=== PATIENT | female | born 1965 | race African-American/Black ===

== ENCOUNTER 2017-04-06 13:41 | Emergency (ER) | payer OTHER ==
[~2017-04-06] VITALS: Ht 170.2 cm; Wt 63.5 kg
[~2017-04-06 13:41] MED LIST: BUPR-197 PO; LORA-392 PO
[2017-04-06 13:43] VITALS: BP 111/81; PULSE 95; RESP 20; TEMP 98.3; O2SAT 98
--- NOTE | 2017-04-06 14:32 | RADRPT ---
EXAM DATE/TIME: 04/06/2017 14:08 [place] COMPARISON: No previous studies available for comparison. INDICATIONS : Flu like symptoms. MEDICAL HISTORY : None. SURGICAL HISTORY : None. ENCOUNTER: Initial ACUITY: 1 week PAIN SCORE: 0/10 LOCATION: Bilateral chest FINDINGS: The heart is normal in size. The mediastinal contours are within normal limits. There is patchy infil trate at the left lung base concerning for a basilar pneumonia. The osseous structures are intact. CONCLUSION: 1. Left basilar infiltrate concerning for a pneumonia. Salty Murray MD on April 06, 2017 at 14:29 Board Certified Radiologist. This report was verified electronically.
--- NOTE | 2017-04-06 14:39 | PD ---
HPI Chief Complaint: Cold / Flu Symptoms Time Seen by Provider: 14:38 Travel History International Travel<30 days: No Contact w/Intl Traveler<30days: No Traveled to known affect area: No History of Present Illness HPI 51-year-old female came to the emergency room with history of body right pain, nausea, vomiting and coughing for past 2 week. Patient says that this started when she was at work about 2 weeks ago and started throwing up. She went to the [place] after that with a took her blood pressure and it was 80 systolic. She was given some by mouth rehydration. She was discharged home on cefuroxime which she is still taking but says that she has not felt any better. In fact her symptoms are getting worse. She's been unable to keep any food down. She feels very dehydrated. Vital signs in triage were relatively stable. Otherwise a healthy person. She did not receive her flu shot this winter. She says her whole body hurts. No travel outside the country. She is bringing out phlegm that's yellowish to greenish in color. There was a chest x-ray done to her arrival in the ER which was read as left lower lobe infiltrate. [facility] Past Medical History Narrative Medical List of her past medical, surgical, social and family history is reviewed from the nursing note. Anxiety: Yes Depression: Yes Cancer: No Cardiovascular Problems: No Diminished Hearing: No Endocrine: Yes Gastrointestinal Disorders: No Genitourinary: No Immune Disorder: No Musculoskeletal: No Neurologic: Yes Psychiatric: Yes (PREVIOUS SUICIDE ATTEMPT 1 YR AGO) Reproductive: No Respiratory: No Thyroid Disease: Yes ?: Not Ovarian Cysts: Yes (1 OVARY REMOVED) Social History Alcohol Use: No Tobacco Use: No Substance Use: No Allergies-Medications (Allergen,Severity, Reaction): Coded Allergies: sertraline (Unverified Allergy, Severe, TONGUE SWELLING, 04/06/17) Comments List of her allergies reviewed from the nursing note. Reported Meds & Prescriptions Reported Meds & Active Scripts Active Ventolin Hfa 18 GM Inh (Albuterol Sulfate) 90 Mcg/Act Aer 2 Puff INH Q4-6H PRN Phenergan Supp (Promethazine HCl) 12.5 Mg Supp 12.5 Mg RECTAL Q4H PRN Zithromax Z-Darrel (Azithromycin) 250 Mg Dspk 250 Mg PO DIRECTED 500 MG (2 tabs) day 1, then 1 tab days 2-5. Reported Cefuroxime (Cefuroxime Axetil) 500 Mg Tab 500 Mg PO BID Effexor (Venlafaxine HCl) 75 Mg Tab 75 Mg PO DAILY Narrative Medication List of her home medications reviewed from the nursing note. Review of Systems Except as stated in HPI: all other systems reviewed are Neg Respiratory: Positive: Cough Gastrointestinal: Positive: Nausea, Vomiting Musculoskeletal: Positive: Myalgias Physical Exam Narrative GENERAL: Awake, alert, moderate distress SKIN: Focused skin assessment warm/dry. HEAD: Atraumatic. Normocephalic. EYES: Pupils equal and round. No scleral icterus. No injection or drainage. ENT: No nasal bleeding or discharge. Mucous membranes pink and moist. NECK: Trachea midline. No JVD. CARDIOVASCULAR: Regular rate and rhythm. No murmur appreciated. RESPIRATORY: No accessory muscle use. Coarse crackles in the left base. GASTROINTESTINAL: Abdomen soft, non-tender, nondistended. Hepatic and splenic margins not palpable. MUSCULOSKELETAL: No obvious deformities. No clubbing. No cyanosis. No edema. NEUROLOGICAL: Awake and alert. No obvious cranial nerve deficits. Motor grossly within normal limits. Normal speech. PSYCHIATRIC: Appropriate mood and affect; insight and judgment normal. Data Data Last Documented VS Vital Signs Date Time Temp Pulse Resp B/P (MAP) Pulse Ox O2 Delivery O2 Flow Rate FiO2 04/06/17 18:21 04/06/17 15:15 99 Room Air 04/06/17 13:43 98.3 95 20 Orders Orders Chest, Pa & Lat (04/06/17 ) Sepsis Workup Initiated (04/06/17 ) Complete Blood Count With Diff (04/06/17 14:46) Comprehensive Metabolic Panel (04/06/17 14:46) Lactic Acid Sepsis Protocol (04/06/17 14:46) Blood Culture (04/06/17 14:46) Blood Glucose (04/06/17 14:46) Ecg Monitoring (04/06/17 14:46) Iv Access Insert/Monitor (04/06/17 14:46) Oximetry (04/06/17 14:46) Oxygen Administration (04/06/17 14:46) Sodium Chlor 0.9% 1000 Ml Inj (Ns 1000 M (04/06/17 15:00) Sodium Chlor 0.9% 1000 Ml Inj (Ns 1000 M (04/06/17 15:00) Influenzae A/B Antigen (04/06/17 14:47) Sodium Chlor 0.9% 1000 Ml Inj (Ns 1000 M (04/06/17 15:00) Legionella Urinary Antigen (04/06/17 14:47) Albuterol-Ipratropium Neb (Duoneb Neb) (04/06/17 15:00) Ceftriaxone Inj (Rocephin Inj) (04/06/17 16:00) Azithromycin Inj (Zithromax Inj) (04/06/17 16:00) Ketorolac Inj (Toradol Inj) (04/06/17 16:00) Creatine Kinase (Cpk) (04/06/17 15:59) Potassium Chloride (Kcl) (04/06/17 16:15) CKMB (04/06/17 15:08) CKMB% (04/06/17 15:08) Ed Discharge Order (04/06/17 17:18) Albuterol-Ipratropium Neb (Duoneb Neb) (04/06/17 17:30) Labs Laboratory Tests Test 04/06/17 15:08 White Blood Count 14.0 TH/MM3 Red Blood Count 4.18 MIL/MM3 Hemoglobin 12.6 GM/DL Hematocrit 36.7 % Mean Corpuscular Volume 87.7 FL Mean Corpuscular Hemoglobin 30.0 PG Mean Corpuscular Hemoglobin Concent 34.2 % Red Cell Distribution Width 13.3 % Platelet Count 215 TH/MM3 Mean Platelet Volume 8.7 FL Neutrophils (%) (Auto) 89.2 % Lymphocytes (%) (Auto) 7.0 % Monocytes (%) (Auto) 3.4 % Eosinophils (%) (Auto) 0.2 % Basophils (%) (Auto) 0.2 % Neutrophils # (Auto) 12.5 TH/MM3 Lymphocytes # (Auto) 1.0 TH/MM3 Monocytes # (Auto) 0.5 TH/MM3 Eosinophils # (Auto) 0.0 TH/MM3 Basophils # (Auto) 0.0 TH/MM3 CBC Comment DIFF FINAL Differential Comment Blood Urea Nitrogen 11 MG/DL Creatinine 0.94 MG/DL Random Glucose 103 MG/DL Total Protein 7.5 GM/DL Albumin 3.3 GM/DL Calcium Level 8.7 MG/DL Alkaline Phosphatase 111 U/L Aspartate Amino Transf (AST/SGOT) 38 U/L Alanine Aminotransferase (ALT/SGPT) 34 U/L Total Bilirubin 0.5 MG/DL Sodium Level 141 MEQ/L Potassium Level 3.2 MEQ/L Chloride Level 104 MEQ/L Carbon Dioxide Level 28.9 MEQ/L Anion Gap 8 MEQ/L Estimat Glomerular Filtration Rate 76 ML/MIN Lactic Acid Level 1.4 mmol/L Total Creatine Kinase 245 U/L Creatine Kinase MB LESS THAN 0.5 NG/ML Creatine Kinase MB % 0.2 % MDM Medical Decision Making Medical Screen Exam Complete: Yes Emergency Medical Condition: Yes Medical Record Reviewed: Yes Differential Diagnosis Pneumonia, influenza, dehydration Narrative Course 4:12 PM awaiting for chemistry. Patient has some leukocytosis. I have given her IV Rocephin and IV Zithromax and 2 L of IV fluid bolus. She has been given Toradol for body aches. 5:19 PM patient has a blood test results back and they look reasonable. I'm comfortable discharging her home on Zithromax at this point. Procedures EKG Prior to Arrival: No Diagnosis Primary Impression: Pneumonia Qualified Codes: J18.1 - Lobar pneumonia, unspecified organism Additional Impressions: Vomiting Qualified Codes: R11.2 - Nausea with vomiting, unspecified Dehydration Needs smoking cessation education Referrals: Primary Care Physician 3 days Additional Instructions: Return to the ER if the condition worsens or any other new concerns or if you' re unable to hold her antibiotics down. Take the medication as per the prescription direction. Follow-up with your primary care on Sunday. You should stop smoking in order to feel better. Med/Other Pt SpecificInfo: Prescription(s) given Scripts Albuterol 18 GM Inh (Ventolin Hfa 18 GM Inh) 90 Mcg/Act Aer 2 PUFF INH Q4-6H Y for SHORTNESS OF BREATH, #1 INHALER 0 Refills Prov: Nato Mckeon MD 04/06/17 Promethazine Supp (Phenergan Supp) 12.5 Mg Supp 12.5 MG RECTAL Q4H Y for NAUSEA OR VOMITING, #15 SUPP 0 Refills Prov: Nato Mckeon MD 04/06/17 Azithromycin (Zithromax Z-Darrel) 250 Mg Dspk 250 MG PO DIRECTED for Infection, #1 DSPK 0 Refills 500 MG (2 tabs) day 1, then 1 tab days 2-5. Prov: Nato Mckeon MD 04/06/17 Disposition: 01 DISCHARGE HOME Condition: Stable Nato Mckeon MD Apr 06, 2017 14:39
[2017-04-06] MEDS ORDERED: VENL75TA PO (14:42)
[2017-04-06] MEDS ORDERED: SODIUM CHLOR 0.9% 1000 ML INJ 1,000 ML IV ONE ×3 (15:00)
[2017-04-06 15:15] VITALS: O2SAT 99
[2017-04-06] MEDS ORDERED: CEFU1TAB20 PO (15:17)
[2017-04-06] MEDS: RESP: ALBUTEROL 2.5 MG/IPRATROPIUM 0.5 MG NEB (SCH) INH (15:24)
[2017-04-06 15:41] LABS: AUTOMATED NEUTROPHIL # 12.5 TH/MM3 (1.8-7.7); BASOPHIL % 0.2 % (0.0-2.0); EOSINOPHIL % 0.2 % (0.0-4.0); HEMATOCRIT 36.7 % (35.0-46.0); HEMOGLOBIN 12.6 GM/DL (11.6-15.3); MEAN CELL VOLUME 87.7 FL (80.0-100.0); MEAN CORPUSCULAR HGB CONC 34.2 % (32.0-36.0); MEAN PLATELET VOLUME 8.7 FL (7.0-11.0); MONO % 3.4 % (0.0-8.0); MONOCYTE # 0.5 TH/MM3 (0-0.9); NEUT % 89.2 % (16.0-70.0); PLATELET COUNT 215 TH/MM3 (150-450); RED BLOOD COUNT 4.18 MIL/MM3 (4.00-5.30); RED CELL DISTRIBUTION WIDTH 13.3 % (11.6-17.2)
[2017-04-06] MEDS ORDERED: cefTRIAXone INJ 1,000 MG in SODIUM CHLORIDE 0.9% INJ 100 ML IV ONE (16:00)
[2017-04-06] MEDS ORDERED: KETOROLAC TROMETHAMINE 30 MG/ML (IVP) VIAL IV PUSH ONE (16:00)
[2017-04-06] MEDS ORDERED: AZITHROMYCIN INJ 500 MG in SODIUM CHLOR 0.9% 250 ML INJ 250 ML IV ONE (16:00)
[2017-04-06 16:06] LABS: ALBUMIN 3.3 GM/DL (3.4-5.0); ALT (GPT) 34 U/L (10-53); AST (GOT) 38 U/L (15-37); BICARBONATE 28.9 MEQ/L (21.0-32.0); BLOOD UREA NITROGEN 11 MG/DL (7-18); CALCIUM 8.7 MG/DL (8.5-10.1); CHLORIDE 104 MEQ/L (98-107); CREATININE 0.94 MG/DL (0.50-1.00); GLOMERULAR FILTRATION RATE 76 ML/MIN (>89); GLUCOSE,RANDOM 103 MG/DL (74-106); SODIUM (NA) 141 MEQ/L (136-145)
[2017-04-06 16:08] LABS: ALKALINE PHOSPHATASE 111 U/L (45-117); TOTAL BILIRUBIN ADULT 0.5 MG/DL (0.2-1.0); TOTAL PROTEIN 7.5 GM/DL (6.4-8.2)
[2017-04-06] MEDS ORDERED: POTASSIUM CHLORIDE 20 MEQ CONTROLLED RELEASE TAB PO ONE (16:15)
[2017-04-06] MEDS ORDERED: ZITHTAB PO (17:21)
[2017-04-06] MEDS ORDERED: PROM2SUP RECTAL (17:22)
[2017-04-06] MEDS ORDERED: VENTAER INH (17:25)
[2017-04-06] MEDS ORDERED: RESP: ALBUTEROL 2.5 MG/IPRATROPIUM 0.5 MG NEB (SCH) NEB ONE (17:30)
== END 2017-04-06 18:21 | disposition home or self-care (01) ==
LOC: NEPD 13:41
DX: J18.1 Lobar pneumonia, unspecified organism (principal); E86.0 Dehydration; R05 Cough; R11.2 Nausea with vomiting, unspecified
CPT/HCPCS: 71046; 80053; 82550; 82552; 83605; 85025; 87040; 87804; 94640; 94664; 96361; 96365; 96367; 96375; 99284; J0456; J0696; J1885; J7030; J7050